=== PATIENT | male | born 1960 | race Two or more races ===

== ENCOUNTER 2017-06-30 09:05 | Inpatient (IN) | payer SELFPAY ==
[~2017-06-30] VITALS: Ht 167.6 cm; Wt 81.0 kg
[2017-06-30 11:00] LABS: UA SPECIFIC GRAVITY 1.025 (1.005-1.035); microscopic required? YES; urine erythrocyte TRACE (NEGATIVE)
[2017-06-30 11:04] LABS: CALCIUM 9.3 mg/dL (8.5-10.1); CARBON DIOXIDE 25.9 mmol/L (21-32); CHLORIDE SERUM 104 mmol/L (98-107); CREATININE SERUM 1.1 mg/dL (0.7-1.3); GFR1 > 60 mL/min; GLUCOSE SERUM 207 mg/dL (74-106); POTASSIUM SERUM 4.3 mmol/L (3.5-5.1); SODIUM SERUM 140 mmol/L (136-145)
[2017-06-30 11:08] LABS: ALKALINE PHOSPHATASE 143 U/L (46-116); ALT/SGPT 14 U/L (16-63); AMYLASE 60 U/L (25-115); AST/SGOT 14 U/L (15-37); BILIRUBIN TOTAL 0.38 mg/dL (0.20-1.00); HDL CHOLESTEROL 54 mg/dL (40-60); LIPASE 126 IU/L (73-393)
[2017-06-30 11:09] LABS: TOTAL PROTEIN, SERUM 8.6 g/dL (6.4-8.2)
[2017-06-30 11:10] LABS: CHOLESTEROL 278 mg/dL (<200)
[2017-06-30 11:19] LABS: PLATELET COUNT 246 x10^3mcL (130-400); RED CELL DISTRIBUTION WIDTH 14.1 % (11.5-14.5)
[2017-06-30 11:30] LABS: BASOPHIL % 0 % (0-2)
[2017-06-30 15:43] VITALS: BP 111/67
[2017-06-30 16:31] LABS: T3 TOTAL 1.08 ng/mL
[2017-06-30 16:35] LABS: FREE T4 0.89 ng/dL (0.76-1.46); FREE THYROXINE INDEX 2.4 ug/dL (1.4-4.5)
[2017-06-30 17:04] LABS: MAGNESIUM 1.9 mg/dL (1.8-2.4); PHOSPHOROUS 3.1 mg/dL (2.5-4.9)
[2017-06-30 17:08] LABS: CHOLESTEROL/HDL RATIO 5.3
[2017-06-30 19:03] LABS: AMPHETAMINE QUAL UR NONE DETECTED (NEG <=1000)
[2017-06-30 22:06] VITALS: BP 116/67
[2017-07-01 05:46] VITALS: BP 97/57
[2017-07-01 07:05] LABS: PLATELET COUNT 195 x10^3mcL (130-400); RED CELL DISTRIBUTION WIDTH 13.9 % (11.5-14.5)
[2017-07-01 07:11] LABS: BASOPHIL % 0 % (0-2)
[2017-07-01 07:21] LABS: CALCIUM 8.5 mg/dL (8.5-10.1); CARBON DIOXIDE 21.8 mmol/L (21-32); CHLORIDE SERUM 107 mmol/L (98-107); GFR1 > 60 mL/min; GLUCOSE SERUM 151 mg/dL (74-106); POTASSIUM SERUM 3.9 mmol/L (3.5-5.1); SODIUM SERUM 140 mmol/L (136-145)
[2017-07-01 08:37] VITALS: BP 101/66
[2017-07-01 23:08] VITALS: BP 102/57
[2017-07-02 05:38] VITALS: BP 111/65
[2017-07-02 09:40] VITALS: BP 103/67
[2017-07-02 15:58] LABS: PLATELET COUNT 189 x10^3mcL (130-400); RED CELL DISTRIBUTION WIDTH 14.4 % (11.5-14.5)
[2017-07-02 15:59] LABS: BASOPHIL % 0 % (0-2)
[2017-07-02 16:10] LABS: CALCIUM 8.5 mg/dL (8.5-10.1); CARBON DIOXIDE 24.2 mmol/L (21-32); CHLORIDE SERUM 105 mmol/L (98-107); CREATININE SERUM 1.1 mg/dL (0.7-1.3); GFR1 > 60 mL/min; GLUCOSE SERUM 142 mg/dL (74-106); POTASSIUM SERUM 3.7 mmol/L (3.5-5.1); SODIUM SERUM 137 mmol/L (136-145)
[2017-07-02 17:54] VITALS: BP 115/62
[2017-07-02 21:59] VITALS: BP 119/68
[2017-07-03 05:32] VITALS: BP 103/58
[2017-07-03 07:12] LABS: BASOPHIL % 0.3 % (0-2); PLATELET COUNT 188 x10^3mcL (130-400); RED CELL DISTRIBUTION WIDTH 13.9 % (11.5-14.5)
[2017-07-03 07:31] LABS: CALCIUM 8.6 mg/dL (8.5-10.1); CARBON DIOXIDE 21.3 mmol/L (21-32); CHLORIDE SERUM 106 mmol/L (98-107); GFR1 > 60 mL/min; GLUCOSE SERUM 121 mg/dL (74-106); POTASSIUM SERUM 3.6 mmol/L (3.5-5.1); SODIUM SERUM 138 mmol/L (136-145)
[2017-07-03 09:00] VITALS: BP 120/71
== END 2017-07-03 14:30 | disposition left against medical advice (07) | DRG 444 ==
LOC: ED 09:05 → MU 14:49
PROVIDERS: Emergency Medicine; Family Medicine; ADMIT Family Medicine
DX: K81.0 Acute cholecystitis (principal); K83.1 Obstruction of bile duct; N17.9 Acute kidney failure, unspecified; R65.10 Systemic inflammatory response syndrome (SIRS) of non-infectious origin without acute organ dysfunction; E11.65 Type 2 diabetes mellitus with hyperglycemia; E78.5 Hyperlipidemia, unspecified; N21.0 Calculus in bladder
CPT/HCPCS: 78226; 82962; 83880; 84439; A9537; J0500; J0696; J1885; J1956; J3490; J7030; Q0092